=== PATIENT | female | born 1990 | race American Indian/Alaskan Native ===

== ENCOUNTER 2020-09-15 23:13 | Outpatient (CLI) | payer OTHER ==
[2020-09-16] MEDS ORDERED: LACTATED RINGERS 500 ML IV ONE (00:13)
[2020-09-16] MEDS ORDERED: LACTATED RINGERS 1,000 ML ONE ×2 (00:34→02:17)
[2020-09-16] MEDS ORDERED: ONDANSETRON 4 MG/2 ML INJ IV ONE (01:31)
[2020-09-16 03:30] VITALS: BP 108/62
--- NOTE | 2020-09-16 04:15 | Ultrasound Report ---
Limited OB Ultrasound Biophysical profile HISTORY: FWB. TECHNIQUE: Grayscale and color imaging performed. COMPARISON: None FINDINGS: There is a single viable intrauterine gestation with cephalic presentation. Heart rate is 1 38 bpm. Cervix measures 4.9 cm in length and appears to be closed. On biophysical profile, the fetus received a score of 2 out of 2 for breathing, movement, posture/ton e, and SELENE. Total score was 8 out of 8. IMPRESSION: 1. Single viable intrauterine gestation as above. 2. Normal biophysical profile. Signer Name: Gustavo Becker MD Signed: 09/16/2020 4:10 AM Workstation Name: [id number]
== END 2020-09-16 03:49 | disposition home or self-care (01) ==
LOC: TRG 23:13 → APU 23:47 → TRG 09-16 03:49
PROVIDERS: ATTEND Obstetrics & Gynecology
DX: O26.893 Other specified pregnancy related conditions, third trimester (principal); R11.0 Nausea; R10.2 Pelvic and perineal pain; O47.03 False labor before 37 completed weeks of gestation, third trimester; Z3A.33 33 weeks gestation of pregnancy
CPT/HCPCS: 59025; 76815; 76819; 96365; J2405; J7120; 96360; 96361; 96374; 96376

== ENCOUNTER 2020-10-03 21:34 | Inpatient (IN) | payer OTHER ==
[2020-10-03] MEDS ORDERED: LACTATED RINGERS 500 ML IV ONE (21:46)
[2020-10-03] MEDS ORDERED: FAMOTIDINE 20 MG/2 ML INJ IV ONE ×2 (22:12→22:14)
[2020-10-03] MEDS ORDERED: AZITHROMYCIN/NS 500 MG/250 ML 500 MG/250 ML BAG IV ONE (22:12)
[2020-10-03] MEDS ORDERED: BICITRA ORAL LIQD 30ML PO ONE (22:12)
[2020-10-03] MEDS ORDERED: METOCLOPRAMIDE 10 MG/2 ML INJ IV ONE (22:12)
[2020-10-03] MEDS ORDERED: BICITRA ORAL LIQD 30ML ONE (22:14)
[2020-10-03] MEDS ORDERED: OXYTOCIN DRIP 30,000 MILLIUNITS/500 ML BAG IV ONE (22:14)
[2020-10-03] MEDS ORDERED: METOCLOPRAMIDE 10 MG/2 ML INJ ONE (22:14)
[2020-10-03] MEDS ORDERED: LACTATED RINGERS 1,000 ML IV SCH (22:15)
--- NOTE | 2020-10-03 22:20 | History and Physical Report ---
History of Present Illness Date of examination: 10/03/20 Chief complaint: contractions and vaginal bleeding History of present illness: 29yo at 35w6d presents with contractions and vaginal bleeding. Contractions began this AM, now increasing in intensity and frequency with the addition of vaginal bleeding at 1100. She otherwise denies leakage of fluid. She denies headache, right upper quadrant pain or changes to vision. No additional complaints. Her has been complicated by malpresentation and complete placenta previa. Past History - Obstetrical History Expected Date of Delivery: 11/01/20 Actual Gestation: 35 Week(s) 6 Day(s) : 5 Para: 1 Number of Pregnancies: 1 Number of Living Children: 2 Medications and Allergies Allergies Allergy/AdvReac Type Severity Reaction Status Date / Time iodine Allergy Severe Angioedema Verified 09/15/20 23:51 shellfish derived Allergy Angioedema Verified 09/15/20 23:51 Review of Systems Genitourinary: vaginal bleeding, contractions - Vital Signs Vital signs: Vital Signs Temp Pulse Resp BP 98.2 F 88 18 127/72 10/03/20 21:41 10/03/20 21:41 10/03/20 21:41 10/03/20 21:41 Temp Pulse Resp BP Pulse Ox 98.2 F 88 18 127/72 10/03/20 21:41 10/03/20 21:41 10/03/20 21:41 10/03/20 21:41 - Physical Exam Breasts: Positive: normal Cardiovascular: Regular rate Lungs: Positive: Clear to auscultation Abdomen: Positive: normal appearance. Negative: distention, tenderness, guarding Uterus: Positive: other (gravid) Extremities: Positive: normal - Obstetrical FHR: category 1 FHR comments: 150s Uterine Contraction Monitor Mode: External Cervical Dilatation: 4 Uterine Contraction Pattern: Irregular Uterine Contraction Intensity: Moderate Results All other labs normal. Assessment and Plan call center agent to OR - Patient Problems (1) Active labor Current Visit: Yes Status: Acute Plan to address problem: Cervix 4 cm on initial exam -known breech presentation, confirmed on usg today -outpatient receptionist to OR for primary CD PNC per [facility]. Labs reviewed on chart O+/Henry/RPRNR/HIV-HepBneg/HSVneg/GC-CTneg/GBS neg (2) malpresentation Current Visit: Yes Status: Acute Plan to address problem: -proceed with Primary CD (3) Complete placenta previa with hemorrhage, third trimester Current Visit: Yes Status: Acute Plan to address problem: -?resolution -now presenting with moderate bleeding in setting of labor -last documented usg of record 06/2020 with complete previa. (4) Alpha thalassemia silent carrier Current Visit: Yes Status: Acute
--- NOTE | 2020-10-03 22:21 | Anesthesia Day of Surgery ---
Anesthesia Day of Surgery - Day of Surgery Patient Examined: Yes Patient H&P Reviewed: Yes Patient is NPO: Yes
--- NOTE | 2020-10-03 22:21 | Anesthesia Consultation ---
Anesthesia Consult and Med Hx Date of service: 10/03/20 - Airway Anesthetic Teeth Evaluation: Good ROM Head & Neck: Adequate Mental/Hyoid Distance: Adequate Mallampati Class: Class II Intubation Access Assessment: Probably Good - Pulmonary Exam CTA: Yes - Cardiac Exam Cardiac Exam: RRR - Pre-Operative Health Status ASA Pre-Surgery Classification: ASA3 Proposed Anesthetic Plan: Spinal - Pulmonary Hx Asthma: No - Cardiovascular System Hx Hypertension: No - Central Nervous System Hx Seizures: No Hx Psychiatric Problems: No - Endocrine Hx Renal Disease: No Hx Hypothyroidism: No Hx Hyperthyroidism: No - Hematic Hx Anemia: No Hx Sickle Cell Disease: No - Other Systems Hx Alcohol Use: No - Additional Comments Anesthesia Medical History Comments: Placenta Previa
[2020-10-03 22:37] LABS: Basophils % (Auto) 0.4 % (0.0-1.8); Eosinophils # (Auto) 0.1 K/mm3 (0.0-0.4); Hematocrit 35.1 % (30.3-42.9); Hemoglobin 11.5 gm/dl (10.1-14.3); Lymphocytes # (Auto) 1.6 K/mm3 (1.2-5.4); Lymphocytes % (Auto) 20.3 % (13.4-35.0); Mean Corpuscular HGB Conc 33 % (30-34); Mean Corpuscular Volume 84 fl (79-97); Monocytes # (Auto) 0.9 K/mm3 (0.0-0.8); Monocytes % (Auto) 11.4 % (0.0-7.3); Platelet Count 135 K/mm3 (140-440); Red Blood Count 4.16 M/mm3 (3.65-5.03); Red Cell Distribution Width 15.4 % (13.2-15.2)
[2020-10-03] MEDS ORDERED: KETOROLAC 30 MG/1 ML INJ ONE (22:42)
[2020-10-03] MEDS ORDERED: ceFAZolin 1 GM VIAL ONE (22:42)
[2020-10-03] MEDS ORDERED: BUPIVACAINE/PF (0.5%) 5 MG/1 ML 30 ML VIAL INFILTRATI ONE (22:42)
[2020-10-03] MEDS ORDERED: dexAMETHasone 20 MG/5 ML VIAL ONE (22:42)
[2020-10-03] MEDS ORDERED: ONDANSETRON 4 MG/2 ML INJ ONE (22:42)
--- NOTE | 2020-10-03 22:45 | Ultrasound Report ---
ULTRASOUND OBSTETRIC LIMITED INDICATION / CLINICAL INFORMATION: PRESENTATION. Clinical Gestational Age (GA): Not provided COMPARISON: 09/16/2020 FINDINGS: HEART RATE (beats per minute): 145 PRESENTATION: Breech. ADDITIONAL FINDINGS: None. IMPRESSION: 1. Breech presentation. Signer Name: Andrey Reyes MD Signed: 10/03/2020 10:41 PM Workstation Name: [id number]
[2020-10-03] MEDS ORDERED: WATER FOR IRRIG STERILE 1,500 ML BOTTLE IR ONE (22:59)
[2020-10-03] MEDS ORDERED: ceFAZolin/STERILE WATER 2 GM/20 ML SYRINGE IV ONE (22:59)
[2020-10-03] MEDS ORDERED: SODIUM CHLORIDE 0.9% IRR 1,500 ML BOTTLE IR ONE (22:59)
[2020-10-03] MEDS ORDERED: OXYTOCIN DRIP 30 UNITS/500 ML BAG IV SCH (23:00)
[2020-10-03] MEDS ORDERED: ceFAZolin/Water 2 GM/20 ML 2 GM/20 ML SYRINGE IV NR (23:00)
[2020-10-03] MEDS ORDERED: PHENYLEPHRINE/NS 1,000 MCG/10 ML SYRINGE (OR USE) IV ONE ×2 (23:13→23:49)
[2020-10-03] MEDS ORDERED: LACTATED RINGERS 1,000 ML ONE ×2 (23:13→23:49)
[2020-10-04] MEDS ORDERED: HETASTARCH 6% 500 ML IV ONE (00:09)
[2020-10-04] MEDS ORDERED: PHENYLEPHRINE 10 MG/1 ML INJ SDV ONE (00:17)
[2020-10-04] MEDS ORDERED: SODIUM CHLORIDE 0.9% 100 ML ONE (00:17)
[2020-10-04 00:32] LABS: Hematocrit 25.7 % (30.3-42.9); Hemoglobin 8.4 gm/dl (10.1-14.3); Mean Corpuscular HGB Conc 33 % (30-34); Mean Corpuscular Volume 86 fl (79-97); Red Blood Count 2.99 M/mm3 (3.65-5.03); Red Cell Distribution Width 15.4 % (13.2-15.2)
[2020-10-04 00:36] LABS: Platelet Count 99 K/mm3 (140-440)
--- NOTE | 2020-10-04 00:42 | Operative Report ---
Operative Report Operative Report: Preoperative diagnosis: 1. at 35w6d 2. Labor 3. Malpresentation 4. Complete Placenta Postoperative diagnosis: Same as above 5. Hemorrhage Procedure: Primary low transverse delivery Surgeon: Dr. Kerline Weathers Anesthesia: Regional Estimated blood loss: 1500 mL IV fluids: 3000 mL Urine output: 200 mL Findings: Liveborn male infant with Apgars of 3 and 9 weight 2019g, normal uterus tubes and ovaries bilaterally Indications: 29-year-old -1-2-2 at 35w6d who presents in labor with malpresentation and complete placenta previa Procedure: The patient was taken to the operating room and given regional anesthesia without complication. She was prepped and draped in a normal sterile fashion. A Pfannenstiel skin incision was made down to fascia which was nicked in the midline. The incision was extended laterally with the Bovie cautery. The superior aspect of the rectus fascia was grasped with [place] clamps x2 and the rectus muscles off sharply. This was done in inferior fashion as well. The rectus muscle midline and peritoneum entered sharply with the Metzenbaum scissors. An Chris retractor was then inserted. A bladder blade was placed. The vesicouterine peritoneum was then entered sharply with Metzenbaum scissors. A bladder flap was created digitally. A low transverse uterine incision was then made and extended digitally. Clear fluid upon entry into the uterine cavity. The was found to be footling breech, back down. The feet and legs were delivered through the incision. The uterine excision was extended bilaterally with the Aparicio scissors. The body was next delivered with gentle traction and fundal pressure. The arms were delivered with rotation and cross body sweeping and finally the head was released with flexion. The cord was clamped and cut x2 and was passed off to pediatrics. The placenta was then manually extracted. The uterus was then exteriorized and cleared of clots and debris. The uterine incision was then closed in a running locked fashion with 0 Monocryl additional imbricating stitch was applied for 2 layer closure. Reinspection was significant for bleeding in both lateral corners of the incision. This was repaired with separate figure of eight stitches using the 0 Monocryl. Hemablast was placed over the incision. Reinspection was significant for continued bleeding in the right lateral margin. Hemostasis was obtained with the bovie and an additional figure of eight stitch using the 0 Monocryl. The bladder flap was reapproximated using the 4-0 monocryl. Methergine was given intraoperatively due to repetitive loss of uterine tone despite pitocin and massage. The posterior cul de sac was cleared of blood and clots. Once adequate tone was obtained, the uterus was returned to the abdomen. The Chris retractor was removed. Reinspection confirmed adequate hemostasis. The peritoneum was then reapproximated with 2-0 Vicryl. The rectus muscles was reaproximated using 2 interrupted stitches using the 2-0 Vicryl. The fascia was then closed with 0 Vicryl in a running fashion. The skin was then reapproximated with 3-0 Monocryl on a Gerald needle subcuticular fashion. Steri- Strips were placed on the incision, following this a pressure dressing was applied. Sponge, lap, and needle counts were correct per nursing report. The patient was taken to the recovery room in stable condition. She received Ancef and Azithromycin prior to the start of the incision.
--- NOTE | 2020-10-04 01:04 | Progress Note ---
Spinal Anesthesia Block - Spinal Anesthesia Block Start Time: 23:02 Stop Time: 23:04 Performed by:: GEORGINA BAILEY Procedure: Sitting, sterile chlorahexadine 0.5% prep/drape, 1% lidocaine skin local, 25G spinal needle + introducer at L3-4, + CSF, - Heme, [1.9 ml 0.5% bupivacaine + 10 mcg dexmedetomidine] injected, drape removed, patient positioned supine with left uterine displacement, and spinal level verified to be adequate prior to surgery.
--- NOTE | 2020-10-04 01:04 | Progress Note ---
Regional Anesthesia Block - Regional Anesthesia Block Start Time: 00:55 Stop Time: 01:00 Performed By:: GEORGINA BAILEY Procedure: U/S guided bilateral tap block performed for post-operative pain requested by Dr. Weathers. H&P & labs reviewed. Procedure explained, questions answered, consent obtained. Patient in the supine position with ekg, blood pressure cuff and pulse ox on and working in PACU. Timeout performed immediately before start of procedure. Probe placed in the mid-axillary line and the external oblique, internal oblique, and transverse abdominus muscles identified. Skin was cleansed with chlorahexadine 0.5% and allowed to dry. A 4" 20 G Jain echogenic needle was advanced in plane until the tip was in the fascial plane between the internal oblique and the transverse abdominus. After negative aspiration 35 ml/side of [30 ml 0.5% Bupivacaine], [10 mg dexamethasone], and [40 ml sterile saline] was injected in 5 ml increments with negative aspiration in between. Patient tolerated procedure well.
[2020-10-04] MEDS ORDERED: PROMETHAZINE 25 MG RECT SUPP PR PRN (02:52)
[2020-10-04] MEDS ORDERED: OXYTOCIN DRIP 30 UNITS/500 ML BAG IV SCH (02:52)
[2020-10-04] MEDS ORDERED: WITCH HAZEL/ GLYCERIN PAD TP PRN (02:52)
[2020-10-04] MEDS ORDERED: ONDANSETRON 4 MG/2 ML INJ IV PRN (02:52)
[2020-10-04] MEDS ORDERED: NALOXONE 0.4 MG/1 ML INJ IV PRN (02:52)
[2020-10-04] MEDS ORDERED: LANOLIN/ZINC/DIMETHICONE (LANSINOH) 7 GM TP PRN (02:52)
[2020-10-04] MEDS ORDERED: MAGNESIUM HYDROXIDE (MOM) ORAL LIQD UDC PO PRN (02:52)
[2020-10-04] MEDS: HYDROmorphone 1 MG/1 ML INJ IV PRN ×2 (03:52→07:49)
[2020-10-04] MEDS: SIMETHICONE 80 MG CHEW TAB PO PRN (07:49)
[2020-10-04] MEDS ORDERED: LACTATED RINGERS 1,000 ML IV ONE (10:00)
[2020-10-04] MEDS: oxyCODONE /ACETAMINOPHEN 5-325MG TAB PO PRN ×2 (10:01→19:54)
[2020-10-04] MEDS: FERROUS SULFATE 325 MG TAB PO SCH (10:01)
[2020-10-04] MEDS: PRENATAL VIT27-FE FUMARATE-FOLIC ACID VIT TAB PO SCH (10:01)
[2020-10-04 10:20] LABS: Hematocrit 20.1 % (30.3-42.9); Hemoglobin 6.4 gm/dl (10.1-14.3)
--- NOTE | 2020-10-04 10:52 | Progress Note ---
Assessment and Plan - Patient Problems (1) delivery delivered Current Visit: Yes Status: Acute Plan to address problem: POD 1 -care per routine -ambulation/IS use encouraged -monitor pain controll (2) Blood loss anemia Current Visit: Yes Status: Acute Plan to address problem: consent for blood transfusion obtained -transfuse 2 units PRBC, repeat hct 2h post transfusion -monitor closely (3) Alpha thalassemia silent carrier Current Visit: Yes Status: Acute Subjective - Subjective Date of service: 10/04/20 Interval history: 29yo at 35w6d presents with contractions and vaginal bleeding. She underwent primary delivery for malpresentation and hx of complete placenta previa. POD 1. Hypotension noted, repeat hct ordered. Denies shortness of breath, dizziness, or chest pain. Complains of incisional pain rated 8-10/10. No additional complaints. Patient reports: voiding normally, pain poorly controlled, no dizzy ambulation : doing well Objective - Vital Signs Latest vital signs: Vital Signs Temp Pulse Resp BP BP Pulse Ox 10/04/20 09:26 93 H 84/39 98 10/04/20 07:56 98.1 F 92 H 18 88/48 99 10/04/20 06:32 98.2 F 82 18 91/50 96 10/04/20 03:52 20 10/04/20 02:40 98.8 F 81 16 117/72 98 10/04/20 02:00 76 12 104/73 97 10/04/20 01:45 63 12 115/70 97 10/04/20 01:30 72 12 107/68 98 10/04/20 01:15 74 12 117/78 93 10/04/20 01:00 71 11 L 115/78 94 10/04/20 00:55 67 14 114/73 94 10/04/20 00:50 97.1 F L 68 12 110/71 97 10/03/20 21:41 98.2 F 88 18 127/72 Intake and Output 10/03/20 10/04/20 10/04/20 22:59 06:59 14:59 Intake Total 100 120 Output Total 1650 Balance -1550 120 Intake: Oral 100 120 Output: Urine 1650 Indwelling 1450 Other: Total, Intake Amount 100 120 # Voids Indwelling Catheter 200 Weight 50.349 kg - Exam Breasts: Present: deferred Cardiovascular: Present: Regular rate Lungs: Present: Clear to auscultation Abdomen: Present: normal appearance, soft, tenderness. Absent: distention, rigidity Uterus: Present: normal, firm Extremities: Present: normal Incision: Present: dry, intact, dressed - Labs Labs: Abnormal lab results 10/03/20 10/03/20 10/04/20 Range/Units 22:01 22:01 00:13 RBC 2.99 L (3.65-5.03) M/mm3 Hgb 8.4 L D (10.1-14.3) gm/dl Hct 25.7 L D (30.3-42.9) % RDW 15.4 H 15.4 H (13.2-15.2) % Plt Count 135 L 99 L (140-440) K/mm3 [place] % (Auto) 11.4 H (0.0-7.3) % [place] # (Auto) 0.9 H (0.0-0.8) K/mm3 Crossmatch See Detail 10/04/20 Range/Units 09:57 RBC (3.65-5.03) M/mm3 Hgb 6.4 L (10.1-14.3) gm/dl Hct 20.1 L (30.3-42.9) % RDW (13.2-15.2) % Plt Count (140-440) K/mm3 [place] % (Auto) (0.0-7.3) % [place] # (Auto) (0.0-0.8) K/mm3 Crossmatch
[2020-10-04] MEDS ORDERED: ACETAMINOPHEN 325 MG TAB PO ONE (11:04)
[2020-10-04] MEDS ORDERED: diphenhydrAMINE 25 MG CAP PO PRN (11:05)
[2020-10-04] MEDS ORDERED: SODIUM CHLORIDE 0.9% 500 ML 500 ML IV ONE ×2 (12:00)
[2020-10-04] MEDS: IBUPROFEN 800 MG TAB PO PRN ×2 (12:30→22:55)
--- NOTE | 2020-10-04 16:59 | Post Anesthesia Evaluation ---
- Post Anesthesia Evaluation Patient Participated: Yes Airway Patent: Yes Stable Respiratory Function: Yes Nausea/Vomiting: No Temp > 96.8F: Yes Pain Manageable: Yes Adequeate Hydration: Yes Anesthesia Complications: No Block Receding Appropriately: Yes
[2020-10-04 21:05] LABS: Basophils % (Auto) 0.2 % (0.0-1.8); Eosinophils % (Auto) 0.1 % (0.0-4.3); Hematocrit 33.1 % (30.3-42.9); Hemoglobin 10.9 gm/dl (10.1-14.3); Lymphocytes # (Auto) 1.2 K/mm3 (1.2-5.4); Lymphocytes % (Auto) 7.3 % (13.4-35.0); Mean Corpuscular HGB Conc 33 % (30-34); Mean Corpuscular Volume 87 fl (79-97); Monocytes # (Auto) 1.9 K/mm3 (0.0-0.8); Monocytes % (Auto) 11.5 % (0.0-7.3); Red Blood Count 3.81 M/mm3 (3.65-5.03); Red Cell Distribution Width 14.6 % (13.2-15.2)
[2020-10-04 21:10] LABS: Platelet Count 89 K/mm3 (140-440)
[2020-10-05] MEDS: oxyCODONE /ACETAMINOPHEN 5-325MG TAB PO PRN ×4 (03:04→21:16)
[2020-10-05] MEDS ORDERED: oxyCODONE /ACETAMINOPHEN 5-325MG TAB PO ONE (09:54)
[2020-10-05] MEDS: SIMETHICONE 80 MG CHEW TAB PO PRN (10:05)
[2020-10-05] MEDS: FERROUS SULFATE 325 MG TAB PO SCH (10:05)
[2020-10-05] MEDS: PRENATAL VIT27-FE FUMARATE-FOLIC ACID VIT TAB PO SCH (10:05)
--- NOTE | 2020-10-05 10:10 | Progress Note ---
Assessment and Plan - Patient Problems (1) Active labor Current Visit: Yes Status: Acute (2) malpresentation Current Visit: Yes Status: Acute (3) Complete placenta previa with hemorrhage, third trimester Current Visit: Yes Status: Acute (4) Alpha thalassemia silent carrier Current Visit: Yes Status: Acute Subjective - Subjective Interval history: 29yo at 35w6d presents with contractions and vaginal bleeding. Contractions began this AM, now increasing in intensity and frequency with the addition of vaginal bleeding at 1100. She otherwise denies leakage of fluid. She denies headache, right upper quadrant pain or changes to vision. No additional complaints. Her has been complicated by malpresentation and complete placenta previa. Objective - Vital Signs Latest vital signs: Vital Signs Temp Pulse Resp BP BP Pulse Ox 10/05/20 09:04 97.7 F 67 18 112/66 98 10/05/20 03:04 18 10/05/20 00:00 98.6 F 78 18 118/68 10/04/20 22:55 18 10/04/20 20:18 98.0 F 69 18 106/65 98 10/04/20 19:54 18 10/04/20 16:20 97.8 F 58 L 19 108/69 98 10/04/20 16:05 98.2 F 82 18 113/69 10/04/20 16:00 98 F 64 19 108/67 95 10/04/20 15:31 98 F 65 19 113/73 99 10/04/20 14:56 97.8 F 66 19 109/68 99 10/04/20 14:29 97.6 F 61 19 107/66 99 10/04/20 14:00 98 F 60 19 102/67 98 10/04/20 13:45 98 F 63 19 102/67 99 10/04/20 13:21 97.8 F 66 19 105/67 99 10/04/20 13:00 97.9 F 65 19 105/67 99 10/04/20 12:30 97.9 F 68 19 98/53 99 10/04/20 12:00 98 F 95 H 19 98/53 99 10/04/20 11:45 98 F 76 19 89/45 100 10/04/20 11:43 98 F 86 19 93/48 98 Intake and Output 10/04/20 10/05/20 10/05/20 22:59 06:59 14:59 Intake Total 300 Output Total 1650 Balance -1350 Intake: Oral 300 Blood Product 0 Leukoreduced Red Blood 0 Cells Unit [id number] Output: Urine 1650 Indwelling Catheter 600 Void 1050 Other: Total, Intake Amount 200 Total, Output Amount 150 # Voids Indwelling Catheter 2 Void 2 - Labs Labs: Abnormal lab results 10/03/20 10/04/20 10/04/20 Range/Units 22:01 09:57 20:36 WBC 16.9 H (4.5-11.0) K/mm3 Hgb 6.4 L (10.1-14.3) gm/dl Hct 20.1 L (30.3-42.9) % Plt Count 89 L (140-440) K/mm3 Lymph % (Auto) 7.3 L (13.4-35.0) % [place] % (Auto) 11.5 H (0.0-7.3) % [place] # (Auto) 1.9 H (0.0-0.8) K/mm3 Seg Neutrophils % 80.9 H (40.0-70.0) % Seg Neutrophils # 13.7 H (1.8-7.7) K/mm3 Crossmatch See Detail
--- NOTE | 2020-10-05 10:18 | Progress Note ---
Assessment and Plan Continue to monitor Anticipate discharge POD 3 - Patient Problems (1) delivery delivered Current Visit: Yes Status: Acute Plan to address problem: POD 1-2 -care per routine -ambulation/IS use encouraged -monitor pain control -delivery complicated by PPH. will add CT abd/pelvis is pain if not improved. (2) Blood loss anemia Current Visit: Yes Status: Acute Plan to address problem: transfused 2 units PRBC -repeat h/h pending -continue to monitor (3) Alpha thalassemia silent carrier Current Visit: Yes Status: Acute Subjective - Subjective Date of service: 10/05/20 Principal diagnosis: delivery Interval history: 29yo at 35w6d POD2 s/p primary delivery for malpresentation and hx of complete placenta previa. Transfused 2 units PRBCs due to blood loss anemia. Denies shortness of breath, dizziness, or chest pain. Complains of incisional pain rated 8-10/10. No additional complaints. Patient reports: pain poorly controlled, no dizzy ambulation, no flatus : doing well Objective - Vital Signs Latest vital signs: Vital Signs Temp Pulse Resp BP BP Pulse Ox 10/05/20 09:04 97.7 F 67 18 112/66 98 10/05/20 03:04 18 10/05/20 00:00 98.6 F 78 18 118/68 10/04/20 22:55 18 10/04/20 20:18 98.0 F 69 18 106/65 98 10/04/20 19:54 18 10/04/20 16:20 97.8 F 58 L 19 108/69 98 10/04/20 16:05 98.2 F 82 18 113/69 10/04/20 16:00 98 F 64 19 108/67 95 10/04/20 15:31 98 F 65 19 113/73 99 10/04/20 14:56 97.8 F 66 19 109/68 99 10/04/20 14:29 97.6 F 61 19 107/66 99 10/04/20 14:00 98 F 60 19 102/67 98 10/04/20 13:45 98 F 63 19 102/67 99 10/04/20 13:21 97.8 F 66 19 105/67 99 10/04/20 13:00 97.9 F 65 19 105/67 99 10/04/20 12:30 97.9 F 68 19 98/53 99 10/04/20 12:00 98 F 95 H 19 98/53 99 10/04/20 11:45 98 F 76 19 89/45 100 10/04/20 11:43 98 F 86 19 93/48 98 Intake and Output 10/04/20 10/05/20 10/05/20 22:59 06:59 14:59 Intake Total 300 Output Total 1650 Balance -1350 Intake: Oral 300 Blood Product 0 Leukoreduced Red Blood 0 Cells Unit [id number] Output: Urine 1650 Indwelling Catheter 600 Void 1050 Other: Total, Intake Amount 200 Total, Output Amount 150 # Voids Indwelling Catheter 2 Void 2 - Exam Breasts: Present: normal Cardiovascular: Present: Regular rate Lungs: Present: Clear to auscultation Abdomen: Present: normal appearance, soft, tenderness, normal bowel sounds. Absent: distention, guarding Uterus: Present: firm, tenderness Extremities: Present: normal Incision: Present: normal, dry, intact - Labs Labs: Abnormal lab results 10/03/20 10/04/20 10/04/20 Range/Units 22:01 09:57 20:36 WBC 16.9 H (4.5-11.0) K/mm3 Hgb 6.4 L (10.1-14.3) gm/dl Hct 20.1 L (30.3-42.9) % Plt Count 89 L (140-440) K/mm3 Lymph % (Auto) 7.3 L (13.4-35.0) % [place] % (Auto) 11.5 H (0.0-7.3) % [place] # (Auto) 1.9 H (0.0-0.8) K/mm3 Seg Neutrophils % 80.9 H (40.0-70.0) % Seg Neutrophils # 13.7 H (1.8-7.7) K/mm3 Crossmatch See Detail
[2020-10-05] MEDS: IBUPROFEN 800 MG TAB PO PRN ×2 (12:33→18:18)
[2020-10-05 12:43] LABS: Hematocrit 31.3 % (30.3-42.9); Hemoglobin 10.3 gm/dl (10.1-14.3)
[2020-10-06] MEDS: oxyCODONE /ACETAMINOPHEN 5-325MG TAB PO PRN (04:00)
[2020-10-06] MEDS: SIMETHICONE 80 MG CHEW TAB PO PRN ×2 (04:03→09:46)
[2020-10-06] MEDS: IBUPROFEN 800 MG TAB PO PRN ×2 (05:03→09:47)
--- NOTE | 2020-10-06 08:22 | Progress Note ---
Assessment and Plan - Patient Problems (1) delivery delivered Current Visit: Yes Status: Acute Plan to address problem: patient doing well discharge home Subjective - Subjective Date of service: 10/06/20 Principal diagnosis: delivery Interval history: Patient is without complaints. Tolerating regular diet. Pain well controlled. Remains afebrile Patient reports: appetite normal, voiding normally, pain well controlled : doing well Objective - Vital Signs Latest vital signs: Vital Signs Temp Pulse Resp BP BP Pulse Ox 10/06/20 00:47 98.2 F 71 20 94/46 96 10/05/20 19:45 98.8 F 68 16 108/57 99 10/05/20 16:48 98.0 F 78 18 100/54 99 10/05/20 09:04 97.7 F 67 18 112/66 98 Intake and Output 10/05/20 10/06/20 10/06/20 22:59 06:59 14:59 Other: # Voids Void 1 - Exam Abdomen: Present: normal appearance
[2020-10-06 08:24] LABS: Hematocrit 31.3 % (30.3-42.9); Hemoglobin 10.3 gm/dl (10.1-14.3); Mean Corpuscular HGB Conc 33 % (30-34); Mean Corpuscular Volume 87 fl (79-97); Platelet Count 109 K/mm3 (140-440); Red Blood Count 3.62 M/mm3 (3.65-5.03); Red Cell Distribution Width 14.6 % (13.2-15.2)
--- NOTE | 2020-10-06 08:24 | Discharge Summary ---
Providers - Providers Date of Admission: 10/03/20 21:46 Date of discharge: 10/06/20 Attending physician: ANTONIETA MAURICE 10/04/20 02:52 Consult to Video Production Intern [CONS] Routine Reason For Exam: Primary care physician: ANTONIETA MAURICE Hospitalization Reason for admission: labor, other (placenta previa) Delivery: Procedure: section, primary low transverse Discharge diagnosis: delivery baby: male Hospital course: Patient presented in labor with placenta previa. Underwent a primary delivery. Transfused prbcs. postop uneventful Condition at discharge: Good Disposition: DC-01 TO HOME OR SELFCARE - Discharge Diagnoses (1) delivery delivered Status: Acute Plan - Discharge Medications Prescriptions: Docusate Sodium [Colace] 100 mg PO BID PRN #60 capsule PRN Reason: Constipation Ibuprofen [Motrin] 800 mg PO Q8HR PRN #60 tablet PRN Reason: Pain , Severe (7-10) oxyCODONE /ACETAMINOPHEN [Percocet 5/325] 1 tab PO Q6HR PRN #30 tablet PRN Reason: Pain - Provider Discharge Summary Activity: no sex for 6 weeks, no heavy lifting 4 weeks, no strenuous exercise Diet: routine Instructions: routine Additional instructions: [] Smoking cessation referral if applicable(refer to patient education folder for contact #) [] Refer to [facility] Booklet Call your doctor immediately for: * Fever > 100.5 * Heavy vaginal bleeding ( >1 pad per hour) * Severe persistent headache * Shortness of breath * Reddened, hot, painful area to leg or breast * Drainage or odor from incision. * Keep incision clean and dry at all times and follow doctor's instructions regarding bathing/showering schedule postop visit in 2 weeks - Follow up plan
[2020-10-06] MEDS: FERROUS SULFATE 325 MG TAB PO SCH (09:46)
[2020-10-06] MEDS: PRENATAL VIT27-FE FUMARATE-FOLIC ACID VIT TAB PO SCH (09:46)
[2020-10-06 14:19] VITALS: BP 117/67
== END 2020-10-06 14:10 | disposition home or self-care (01) | DRG 765 ==
LOC: TRG 21:34 → APU 21:35 → TRG 21:46 → OB 10-04 02:30
PROVIDERS: ADMIT Obstetrics & Gynecology; ATTEND Obstetrics & Gynecology
PROC: 10D00Z1 Extraction of Products of Conception, Low, Open Approach (ICD-10-PCS; principal; 2020-10-04)
PROC: 30233N1 Transfusion of Nonautologous Red Blood Cells into Peripheral Vein, Percutaneous Approach (ICD-10-PCS; 2020-10-04)
PROC: 3E0R3BZ Introduction of Anesthetic Agent into Spinal Canal, Percutaneous Approach (ICD-10-PCS; 2020-10-04)
DX: O44.13 Complete placenta previa with hemorrhage, third trimester (principal); O60.14X0 Preterm labor third trimester with preterm delivery third trimester, not applicable or unspecified; Z3A.35 35 weeks gestation of pregnancy; Z20.822 Contact with and (suspected) exposure to COVID-19; D56.3 Thalassemia minor; O32.1XX0 Maternal care for breech presentation, not applicable or unspecified; Z37.0 Single live birth; D62 Acute posthemorrhagic anemia; Z91.041 Radiographic dye allergy status; Z91.013 Allergy to seafood; O72.1 Other immediate postpartum hemorrhage
CPT/HCPCS: 36415; 76815; 85014; 85018; 85025; 85027; 86592; 86706; 86762; 86850; 86900; 86901; 86920; 87806; G0378; C1765; J0690; J1100; J1170; J1885; J2370; J2405; J2765; J3490; J7120; P9016; U0003